=== PATIENT | female | born 1940 | race Caucasian/White ===

== ENCOUNTER 2016-10-02 17:32 | Inpatient (IN) | payer MEDICARE, OTHER ==
--- NOTE | ~2016-10-02 | CN ---
Consultation Report [facility] [address] [place]. [address] NAME: TATI AKHTAR : 40 STATUS : ADM David PAT#: [id number] AGE: 76 ADM/REG DATE : 10/02/16 MR#: [id number] REPORT SERV DATE: 10/04/16 DICTATED BY: CONRADO PINTO DATE: 10/03/16 REPORT STATUS : Draft TRANSCRIBED BY: MODL DATE: 10/03/16 DATE OF CONSULTATION: 10/03/2016 CHIEF COMPLAINT: Shortness of breath in a patient with bilateral recurrent pleural effusions. HISTORY OF PRESENT ILLNESS: Mrs. Tati Akhtar is a pleasant 76-year-old white female with a past medical history significant for bilateral pleural effusions, atrial fibrillation and hypertension, who presents to [facility] Emergency Room with complaints of worsening shortness of breath. It should be noted that Mrs. Akhtar has been hospitalized recently with similar complaints. Mrs. Akhtar is established in our pulmonary clinic and sees Dr. Ware. She is not on any pulmonary medications. She does wear chronic oxygen at hour of sleep at 3 L. The patient states that she quit smoking over 30 years ago. Prior to this time, she states that she smoked approximately one pack a day for a period about five years. She denies symptomatology consistent with obstructive sleep apnea. She has difficulty quantifying her exercise tolerance as she is somewhat limited secondary to a stroke. Mrs. Akhtar has undergone at least four separate thoracenteses, three on the left and once on the right. These appeared to be transudative in nature, although the initial June tap barely falls out of criteria in regard to protein. Followup studies for culture and malignancy have all been negative. The patient has responded to diuretic therapy in the past with some improvement in her effusions and dyspnea. She was most recently discharged on 20 of Demadex, which she states that she has been compliant in taking. More recently, she has experienced some worsening shortness of breath, which culminated in her presentation to [facility] Emergency Room. Upon arrival, she was found to have a BNP of only 123. Chest x ray revealed effusion. This prompted a CT of the chest, which reveals bilateral pleural effusions, left greater than right, as well as compressive atelectasis. For the aforementioned reasons, she has been referred to the Pulmonary Service for further assessment. Currently, Mrs. Akhtar is on 2 L of supplemental oxygen. She does confirm some degree of shortness of breath. This is worse on exertion and relieved by the rest. She does have what she describes as a "wet cough." This is producing nonpurulent sputum. She denies past pneumonias. She denies a formal diagnosis of asthma, chronic bronchitis, or emphysema. The patient does have known atrial fibrillation and some mild coronary artery disease by report. She has been told that "she has a hole in her heart." She currently denies any murmurs, angina, or palpitations. She denies any worsening lower extremity edema. In regard to constitutional symptoms, she currently denies fever, chills, nausea, vomiting, chest pain, abdominal pain, or edema. PAST MEDICAL HISTORY: Consultation Report [address] [address] NAME: TATI AKHTAR : 40 STATUS : ADM David PAT#: [id number] AGE: 76 ADM/REG DATE : 10/02/16 MR#: [id number] REPORT SERV DATE: 10/04/16 DICTATED BY: CONRADO PINTO DATE: 10/03/16 REPORT STATUS : Draft TRANSCRIBED BY: LYNNE DATE: 10/03/16 1. Bilateral pleural effusions. 2. Bilateral atelectasis. 3. Congestive heart failure. 4. Atrial fibrillation. 5. Coronary artery disease. 6. Bipolar disorder. 7. Gastroesophageal reflux disease. 8. Hypertension. 9. Dyslipidemia. 10.Hypothyroidism. 11.Previous CVA. 12.Type 2 diabetes. PAST SURGICAL HISTORY: 1. Lumpectomy. 2. Cataract surgery. 3. Hysterectomy with bilateral salpingo-oophorectomy. FAMILY HISTORY: The patient denies a family history of lung disease. SOCIAL HISTORY: The patient currently resides in a residential facility. She has children. She denies any previous exposures to dust, silica, or asbestos. TOBACCO/ALCOHOL: As previously mentioned, the patient quit smoking over 30 years ago. Prior to this time, she smoked approximately one pack a day for about five years. MEDICATIONS: 1. DuoNeb. 2. Carvedilol 6.25 mg. 3. Digoxin 1.25 mg. 4. Depakote 250 mg. 5. Colace 100 mg. 6. Aricept 10 mg. 7. Levothyroxine 200 mcg. 8. Lisinopril 2.5 mg. 9. Metformin 500 mg. 10.Potassium chloride 20 mEq. 11.Pravastatin 40 mg. 12.Risperdal 0.25 mg. 13.Zoloft 25 mg. 14.Demadex 100 mg tablet 50 mg daily. 15.Trazodone 100 mg. ALLERGIES: THE PATIENT HAS KNOWN ALLERGY TO PENICILLIN. Consultation Report [address] [place]. [address] NAME: TATI AKHTAR : 40 STATUS : ADM David PAT#: [id number] AGE: 76 ADM/REG DATE : 10/02/16 MR#: [id number] REPORT SERV DATE: 10/04/16 DICTATED BY: CONRADO PINTO DATE: 10/03/16 REPORT STATUS : Draft TRANSCRIBED BY: LYNNE DATE: 10/03/16 REVIEW OF SYSTEMS: Complete review of systems was performed with the pertinent positives and negatives contained within the body of the HPI. PHYSICAL EXAMINATION: VITAL SIGNS: Blood pressure is 189/85, heart rate 73, T-max is 97.7, respiratory rate is 16, SpO2 is 94% on 2 L. GENERAL: The patient is a pleasant, well-nourished/well-developed female, who is not currently exhibiting any signs of acute distress. SKIN: Skin with appropriate texture and turgor. No rashes, lesions, or ulcers. Nails are clear without cyanosis or clubbing. HEENT: Head: Skull is normocephalic/atraumatic. Facies symmetric. No masses or lesions. Eyes: Sclera anicteric, conjunctiva pink without exudates. Extra ocular movements intact. Pupils are equal, round, reactive to light. Ears: Auricles and tragus without pain to palpation. Hearing is grossly intact. Nose: Bilateral nasal patency. Sinuses without tenderness upon palpation. Throat: Dentition. Lips, oral mucosa, tongue, palate, and pharynx pink and moist without lesions. Uvula rises equally on phonation. Tongue midline without deviation. NECK: Neck supple. Trachea midline. No cervical lymphadenopathy appreciated. THORAX/LUNGS: Thorax is symmetric with equal chest rise. Diminished breath sounds in the bases as well as a few scattered rhonchi. CARDIOVASCULAR: Regular rate and rhythm. No murmurs, rubs, or gallops. Anterior chest without thrills, heaves, or lifts. ABDOMEN: Soft. Non-distended, non-tender. Active bowel sounds in all four quadrants. No hepatosplenomegaly noted. PERIPHERAL VASCULAR: No edema. No varicosities, stasis changes, open sores, ulcerations, or phlebitis. 2+ pulses in radial and dorsalis pedis. MUSCULOSKELETAL: Full AROM and PROM in all joints. No evidence of erythema, deformity, or crepitus. NEUROLOGIC: CN II - XII grossly intact. Good muscle bulk and tone bilaterally. Strength 5/5 throughout. PSYCHIATRIC: Patient demonstrates good judgment and insight. Pt is A&O x 3. ACCESSORY DATA: Reveals a white blood cell count of 10,900. Creatinine is 1.04. TSH is 2.49. Urine antigens for strep and Legionella are negative. Urine is benign. Chest x-ray reveals pleural effusions, left greater than right. CT of the chest reveals probable bibasilar and multisegmental atelectasis, left greater than right, with underlying pleural effusions, left greater than right. Less likely underlying pneumonia. IMPRESSION: 1. Recurrent bilateral pleural effusions. 2. History of atrial fibrillation. 3. Heart failure with preserved ejection fraction. 4. Mild tricuspid regurgitation. 5. History of cerebrovascular accident. Consultation Report [address] [address] NAME: TATI AKHTAR : 40 STATUS : ADM David PAT#: [id number] AGE: 76 ADM/REG DATE : 10/02/16 MR#: [id number] REPORT SERV DATE: 10/04/16 DICTATED BY: CONRADO PINTO DATE: 10/03/16 REPORT STATUS : Draft TRANSCRIBED BY: MODPriti DATE: 10/03/16 PLAN: At this time, we will provide the patient with diuretics with close attention to her blood pressure and renal function. We did discuss the possibility of repeat thoracentesis versus video-assisted thorascopic surgery and even PleurX catheter placement. At this time, we will attempt to manage her with medications. Moving forward, we may need to pursue more invasive means of managing her effusions. The aforementioned impression and plan has been discussed with Dr. Elizalde, who will follow further recommendations. We thank you for this consult and look forward to participating in the care of Mrs. Tati Akhtar. GBS/MODL Conrado Pinto PA-C / [id number] CC: Alli Cabrera Jr, MD Osborn, Michael
--- NOTE | ~2016-10-02 | OP ---
Record Of Operation [facility] [address] [place]. [address] NAME: JOSELO AKHTAR : 40 STATUS : ADM IN PAT#: [id number] AGE: 76 ADM/REG DATE : 10/03/16 MR#: [id number] REPORT SERV DATE: 10/11/16 DICTATED BY: SKYE CAMPOS DATE: 10/10/16 REPORT STATUS : Draft TRANSCRIBED BY: MODL DATE: 10/10/16 DATE OF PROCEDURE: PROCEDURE: Right PleurX catheter placement. REASON FOR PROCEDURE: Right pleural effusion, which is recurrent. PREOPERATIVE DIAGNOSIS: Transudative right pleural effusion, recurrent. POSTOPERATIVE DIAGNOSIS: Transudative right pleural effusion, recurrent. PROCEDURE NOTE: Mrs. Akhtar is a 76-year-old female with the above-named diagnosis, who was brought down to the bronchoscopy suite, she was placed in proper position, using ultrasound, we were able to locate the correct pocket on the right side. We then sterilized and draped that site after marking. We then used a PleurX catheter insertion kit, we were able to anesthetize the area with lidocaine. The patient was given moderate sedation by Anesthesia. We were able to insert a finer needle into the right pleural space and have return of pleural fluid. We then placed the guidewire and tunneled a PleurX catheter in standard fashion into that site. We had removal of around 75 mL of pleural fluid. There was some air that did come into the site during the procedure and the majority that was taken out with the suction catheter. We then had no significant bleeding or subcutaneous air, we then sutured the PleurX catheter and placed a chest tube, lays suture to hold that in place and dressed the site in proper fashion. The patient had minimal coughing. OUTCOME: Successful right PleurX catheter placement. HFQ/LYNNE Skye Campos MD / [id number] CC: MD BHASKAR Santos MICHAEL
--- NOTE | ~2016-10-02 | OP ---
Record Of Operation [facility] [address] [place]. [address] NAME: JOSELO JACOBS : 40 STATUS : ADM IN PAT#: [id number] AGE: 76 ADM/REG DATE : 10/03/16 MR#: [id number] REPORT SERV DATE: 10/05/16 DICTATED BY: CONRADO PINTO DATE: 10/05/16 REPORT STATUS : Draft TRANSCRIBED BY: MODL DATE: 10/05/16 DATE OF PROCEDURE: 10/05/2016 TIME: 1520 hours. PROCEDURE: Ultrasound-guided left-sided thoracentesis. INDICATION: Moderate to large left-sided pleural effusion. PROCEDURE PRODUCTION ESTIMATOR: Armando Pinto PA-C. CONSENT: Consent was obtained from the patient prior to the procedure. Diagnostic and therapeutic indications for thoracentesis were discussed as well as risks including life- threatening bleeding, pneumothorax, and even the possible necessity of chest tube placement. Benefits and alternatives were explained at length. Prior to the procedure, imaging studies were reviewed with Dr. Elizalde who agreed with the indication to proceed with thoracentesis. Dr. Elizalde was present during the procedure. PROCEDURE SUMMARY: A time out was performed verifying correct patient, procedure, site, and positioning. The patient's left chest was prepped and draped in a sterile manner using chlorhexidine scrub after the appropriate level was percussed and confirmed by ultrasound. U/S images were obtained and placed within the chart. 2% lidocaine with epinephrine was then used to anesthetize the region. A finder needle was then used to aspirate straw- colored fluid. A 10-blade scalpel was then used to make a small incision. The thoracentesis catheter was then threaded into the pleural space without difficulty. The patient had 1 L of straw-colored fluid removed. Of note, the right side of the chest was ultrasounded as well with a significant pocket of fluid. That being said, the patient began to develop a more pronounced cough and it was decided at that time to not proceed with right sided thoracentesis. No immediate complications were noted during the procedure. A post- procedure chest x-ray is pending at the time of this dictation. The fluid will be sent for several studies. ESTIMATED BLOOD LOSS: Minimal. GBS/MODL Conrado Pinto PA-C / [id number] CC: Alli Cabrera Jr, MD Osborn, Michael
--- NOTE | ~2016-10-02 | DS ---
Discharge Summary [facility] [address] [place]. [address] NAME: JOSELO JACOBS : 40 STATUS : DIS IN PAT#: [id number] AGE: 76 ADM/REG DATE : 10/03/16 MR#: [id number] REPORT SERV DATE: 10/13/16 DICTATED BY: SHERMAN MCKEON DATE: 10/12/16 REPORT STATUS : Draft TRANSCRIBED BY: MODL DATE: 10/12/16 ADMISSION DATE: 10/03/2016 DISCHARGE DATE: 10/12/2016 The patient is a 76-year-old female with a history of CVA with right hemiparesis, atrial fibrillation, hypertension, bipolar disorder, and diabetes type 2, who presented to the hospital with a complaint of worsening shortness of breath and intractable cough. For further details please refer to H and P dictated by Dr. Allen on 10/04/2016. HOSPITAL COURSE: Please refer to interim discharge summary dictated by Dr. Rodriguez on 10/09/2016. This dictation is an addition to interim discharge summary. I assumed care of the patient on 10/09/2016. At that time plan was for the patient to have discussion with Cardiothoracic Surgery for possible VATS procedure; however, upon re-examination, re- evaluation by Pulmonary, that plan was discontinued and it was opted that a PleurX catheter be placed. PleurX catheter was placed on 10/10/2016, the patient tolerated the procedure well. Status post procedure the patient has remained hemodynamically stable. From a Pulmonary standpoint, no further procedures will be performed at this time, clearing the patient for discharge. The patient is currently on drain schedule of Saturday, Saturday, Saturday; however, no fluid will be drained this Saturday. Given completion of management and given clearance by Pulmonology, the patient will be discharged back to alf facility at [place]. Plan has been discussed with the patient, who voices understanding and is agreeable with this plan. DISCHARGE DIAGNOSES: 1. Bilateral pleural effusion. 2. Status post PleurX catheter placement. 3. Atrial fibrillation. 4. Hypertension. 5. Diabetes type 2. 6. Cough. DISCHARGE MEDICATIONS: 1. Coreg 6.25 mg p.o. b.i.d. 2. Digoxin 0.125 mg p.o. daily. 3. Depakote 250 mg p.o. twice a day. 4. Colace 100 mg p.o. twice a day. 5. Aricept 10 mg p.o. at bedtime. 6. Levothyroxine 200 mcg p.o. at breakfast. 7. Lisinopril 2.5 mg p.o. daily. 8. Potassium chloride 20 mEq p.o. twice a day. 9. Pravastatin 40 mg p.o. at bedtime. 10.Risperdal 0.25 mg p.o. at bedtime. 11.Florastor 250 mg p.o. twice a day. 12.Zoloft 75 mg p.o. daily. 13.Torsemide 50 mg p.o. daily. 14.Trazodone 100 mg p.o. at bedtime. Discharge Summary [address] [address] NAME: JOSELO JACOBS : 40 STATUS : DIS IN PAT#: [id number] AGE: 76 ADM/REG DATE : 10/03/16 MR#: [id number] REPORT SERV DATE: 10/13/16 DICTATED BY: SHERMAN MCKEON DATE: 10/12/16 REPORT STATUS : Draft TRANSCRIBED BY: LYNNE DATE: 10/12/16 15.Metformin 500 mg p.o. twice a day. 16.DuoNebs one inhalation three times daily. DISPOSITION: The patient will be discharged to alf facility at [place]. ACTIVITY: As tolerated. DIET: Diabetic diet. Greater than 30 minutes were spent coordinating discharge, providing counseling, medication reconciliation, and dictation of note. CHILO/LYNNE Sherman Mckeon MD / [id number] CC: MD Alysa Santos M.D.
--- NOTE | ~2016-10-02 | IDS ---
Interim Discharge Summary [facility] [address] [place]. [address] NAME: JOSELO JACOBS : 40 STATUS : ADM IN PAT#: [id number] AGE: 76 ADM/REG DATE : 10/03/16 MR#: [id number] REPORT SERV DATE: 10/09/16 DICTATED BY: EMIL RAE DATE: 10/08/16 REPORT STATUS : Draft TRANSCRIBED BY: MODL DATE: 10/08/16 ADMISSION DATE: 10/03/2016 DISCHARGE DATE: PROCEDURES DONE: 1. 10/08/2016, chest x-ray: Continued bilateral pleural effusion and bibasilar atelectasis, similar to prior exam .. 2. 10/06/2016, chest x-ray: Increasing atelectasis, possibly increasing pleural effusion bilaterally. 3. 10/05/2016, chest x-ray: Pulmonary vascular congestion with interstitial edema and bilateral pleural effusions are improving. There are some residual infiltrates in the lung bases. Right lung base is worst than the left. 4. 10/03/2016, chest x-ray: Continued moderate left and small right pleural effusion with compressive atelectasis. 5. 10/02/2016, chest x-ray: Bibasilar atelectasis/consolidation of moderate bilateral pleural fluid, left greater than right, similar to prior exam. 6. 10/02/2016, CT chest with contrast, probable bibasilar multisegmental atelectasis, left greater than right with underlying pleural effusions, left greater than right, less likely underlying pneumonia. Multisegmental atelectasis pattern and pleural effusions new at the left lung base since 08/22/2016 CT exam. Although, slightly improved atelectasis with stable pleural effusions at the right lung base since prior CT. Mild cardiomegaly, no acute CHF pattern. No thoracic adenopathy. Stable pattern of asymmetric soft tissue attenuation volume, parenchyma deep to the right nipple in the right breast compared to the left breast, uncertain clinical significance. Mild diffuse bilateral renal cortical thickening. CONSULT: [facility] for Pulmonary. REASON FOR ADMISSION: Shortness of breath with cough. HISTORY OF HOSPITAL STAY: A 76-year-old white female with past medical history of CVA with right hemiparesis, atrial fibrillation, hypertension, bipolar, diabetes type 2, hypothyroid presenting with shortness of breath and intractable cough. The patient has had multiple thoracocentesis regarding her recurrent pleural effusion. The patient has shortness of breath and intractable cough with her recurrent bilateral pleural effusion. Pulmonary was consulted. The patient underwent thoracocentesis on 10/05/2016 with one liter of fluid removed. Unfortunately, Pulmonary has had difficulty in figuring out why the patient has been having recurrent pleural effusion. Since the patient had approximately 6 thoracocentesis total since June, Pulmonary is reluctant to do further thoracocentesis on the patient. Therefore, a CT surgery will be consulted for a VATS procedure on the patient, plus or minus pleurodesis. DIAGNOSES ON DISCHARGE: 1. Shortness of breath with cough secondary to recurrent bilateral pleural effusions. At this time, the patient has had six thoracocentesis. Pulmonary is recommending CT surgery for VATS with plus or minus pleurodesis. The patient is willing to listen to Interim Discharge Summary [address] [address] NAME: JOSELO JACOBS : 40 STATUS : [facility]#: [id number] AGE: 76 ADM/REG DATE : 10/03/16 MR#: [id number] REPORT SERV DATE: 10/09/16 DICTATED BY: EMIL RAE. DATE: 10/08/16 REPORT STATUS : Draft TRANSCRIBED BY: LYNNE DATE: 10/08/16 CT surgery recommendations. The patient is unfortunately apprehensive about the procedure. Nonetheless, the patient is willing to try and listen and see if she can tolerate the procedure. 2. Atrial fibrillation, currently asymptomatic. 3. Hypertension, continue lisinopril. 4. Bipolar, continue donepezil and sertraline with risperidone. 5. Diabetes type 2, continue insulin sliding scale. FBBarbara/MODL Emil Rae MD / [id number] CC: Isidro Holland II, MD
--- NOTE | ~2016-10-02 | OP ---
Record Of Operation [facility] [address] [place]. [address] NAME: JOSELO JACOBS : 40 STATUS : ADM IN PAT#: [id number] AGE: 76 ADM/REG DATE : 10/03/16 MR#: [id number] REPORT SERV DATE: 10/11/16 DICTATED BY: SKYE CAMPOS DATE: 10/10/16 REPORT STATUS : Draft TRANSCRIBED BY: MODL DATE: 10/10/16 DATE OF PROCEDURE: 10/10/2016 PROCEDURE: Left PleurX catheter placement. PREOPERATIVE DIAGNOSIS: Recurrent transudative effusions bilaterally. POSTOPERATIVE DIAGNOSIS: Recurrent transudative effusions bilaterally. PROCEDURE NOTE: The patient is a 76-year-old female with the above-named diagnosis. She is getting a bilateral PleurX catheter placement for bilateral pleural effusions which are recurrent. After the right side was conducted, we then repositioned the patient and prepped and draped the left thoracic cavity. We then used ultrasound guidance to find a pocket, this was marked, and the patient was sterilized. In standard fashion, we inserted the left PleurX catheter. We were able to anesthetize the site with lidocaine and epinephrine. We were able to get the removal of pleural fluid and placed a guidewire in the pleural space. We then tracked in standard fashion a PleurX catheter on the left side. We were able to place the chest tube, and after having removal of around 150 mL of pleural fluid and no emphysema or bleeding was noted, we were able to suture that left PleurX catheter in standard fashion. We used a lace chest tube suture. We then dressed that side and procedure was over. OUTCOME: Successful left-sided PleurX catheter placement. HFQ/MODL Skye Campos MD / [id number] CC: MD Pascual Santos
--- NOTE | ~2016-10-02 | HP ---
History And Physical [facility] [address] [place]. [address] NAME: JOSELO AKHTAR : 40 STATUS : ADM David PAT#: [id number] AGE: 76 ADM/REG DATE : 10/02/16 MR#: [id number] REPORT SERV DATE: 10/04/16 DICTATED BY: LEONARD FERGUSON DATE: 10/03/16 REPORT STATUS : Draft TRANSCRIBED BY: MODL DATE: 10/03/16 DATE OF ADMISSION: 10/02/2016 CHIEF COMPLAINT: Shortness of breath and intractable cough. HISTORY OF PRESENT ILLNESS: This is a 76-year-old female with a history of CVA in the past, with right hemiparesis, history of atrial fibrillation, hypertension, bipolar disorder, diabetes mellitus, and hypothyroidism who presents to the emergency room at [facility] with the above-mentioned complaint. History is obtained from the patient and reviewing data available on the Intrinsic-ID System. According to available data, she had been having a week of progressively worsening shortness of breath and intractable cough. She also had a temperature of 102 degrees, but was afebrile upon presentation here. She is a resident at the [facility] [place], and finally, the facility felt that she needs to go to the emergency room to be evaluated. In the emergency room, initial workup including a chest x-ray showed bilateral pleural effusions, left more than right. She is a patient of Dr. Ware, has had multiple thoracenteses done, both from the right and left pleural fluids, which have been historically transudates. The etiology of her pleural effusions was unclear. Hospitalist Service is asked to admit her for further evaluation and treatment. At the time of my evaluation, she denied any chest pain or palpitations. She had some orthopnea. She had a cough, which was essentially nonproductive, not associated with any fevers, chills, weight loss, or night sweats. She has had no recent falls or loss of consciousness. No history of nausea, vomiting, diarrhea, hematemesis, hematochezia, or hematuria. No other history of recent travel or exposures other than those mentioned above. PAST MEDICAL HISTORY: Her past medical history is significant for history of recurrent bilateral pleural effusions of unclear etiology, history of atrial fibrillation, hypertension, history of CVA with right hemiparesis, history of bipolar disorder, diabetes mellitus type 2, hypothyroidism, and coronary artery disease. Her last echocardiogram done in June 2016 showed an ejection fraction of 56% with an RVSP of 19 mmHg. SOCIAL HISTORY: She has never smoked. Does not drink or use recreational drugs. FAMILY HISTORY: Noncontributory. MEDICATIONS: Her medications at home were reviewed by me in the chart today and reordered by me. REVIEW OF SYSTEMS: As in history of present illness. All other systems were reviewed in detail and are quite unremarkable. PHYSICAL EXAMINATION: History And Physical [address] [address] NAME: JOSELO AKHTAR : 40 STATUS : ADM David PAT#: [id number] AGE: 76 ADM/REG DATE : 10/02/16 MR#: [id number] REPORT SERV DATE: 10/04/16 DICTATED BY: LEONARD FERGUSON DATE: 10/03/16 REPORT STATUS : Draft TRANSCRIBED BY: LYNNE DATE: 10/03/16 GENERAL: This is a pleasant 76-year-old, not in any acute distress. She is alert, awake, oriented to time, place, and person. HEENT: Her head is atraumatic and normocephalic. Her pupils are equal, reacting to light and accommodating. External ocular muscles are intact. Membranes are moist and pink. Sclerae are nonicteric. NECK: Supple with no jugular venous distention, lymphadenopathy, or thyromegaly. LUNGS: Auscultation of her lungs revealed decreased air entry bilaterally, but with bilateral dullness to percussion in the bases. There were no rales. Trachea appeared to be in the midline. HEART: Auscultation of her heart revealed normal rate and rhythm with no murmurs, rubs, or gallops appreciated. ABDOMEN: Soft and nontender. Bowel sounds are present. EXTREMITIES: Showed no cyanosis, clubbing, or edema. NEUROLOGIC: Grossly intact. She has residual right hemiparesis from her prior stroke. No new findings. She has some dysphagia as well, which is not new. Higher functions appeared intact. VITAL SIGNS: Her vital signs today showed a temperature of 97.7, pulse 133/40, respirations upon arrival were 19, blood pressure was 133/40, and oxygen saturations were 93% on 4 liters of oxygen via nasal cannula. LABORATORY DATA: Reviewed on the Intrinsic-ID System showed a sodium of 139, potassium of 4.0, chloride 98, CO2 of 30, BUN was 17 with a creatinine of 1.29 and blood glucose was 172. Liver parameters were within normal limits. BNP was 123.1. CBC showed a white blood cell count of 10,900, otherwise, normal hemoglobin, hematocrit, and platelet count. Her prothrombin time was 13 and INR was 1.0. Urinalysis was grossly unremarkable. Films of the chest x-ray were reviewed by me on the PACs today and interpreted by me. There is normal bony architecture with no cardiomegaly. There are bilateral pleural effusions, left greater than right. IMPRESSION: 1. Shortness of breath. 2. Bilateral pleural effusions, which are recurrent. 3. Hypomagnesemia. 4. History of atrial fibrillation. 5. Hypertension. 6. History of prior cerebrovascular accident with right hemiparesis and dysphagia. 7. Diabetes mellitus type 2. 8. Hypothyroidism. 9. Bipolar disorder. 10.Coronary artery disease. PLAN: We will admit Ms. Akhtar to the Hospitalist Service with telemetry for a 24-hour observation. We will keep her n.p.o. after midnight for possible thoracentesis in the morning. We will go ahead and consult Pulmonary Service to see her as well. We will replace her magnesium, check chemistry and electrolytes in the morning, and replacing per protocol again. We will place her on NovoLog insulin per sliding scale for blood sugar control and hold her metformin. We will also check her TSH and continue replacement History And Physical [address] [address] NAME: JOSELO AKHTAR : 40 STATUS : ADM David PAT#: [id number] AGE: 76 ADM/REG DATE : 10/02/16 MR#: [id number] REPORT SERV DATE: 10/04/16 DICTATED BY: LEONARD FERGUSON DATE: 10/03/16 REPORT STATUS : Draft TRANSCRIBED BY: MODPriti DATE: 10/03/[address] her on SCDs for DVT prophylaxis while she is here tonight, hold her aspirin as well. This is in preparation for her procedure. Please see today's orders for all the details. I have discussed the above plans with the patient. Her questions were answered and she is agreeable to the above recommendations. Hospitalist Service will be following her during her stay here. /LYNNE Leonard Ferguson M.D. / [id number] CC: Alli Cabrera Jr, MD OSBORN, MICHAEL
[~2016-10-02 17:32] MED LIST: ARICEPT10 PO; ASA5GR PO; ATROVENTUD INH; COREG12 PO; COREG6 PO; DEMA20 PO; DEPAKOT250 PO; DEPASPRINK PO; DSS PO; DUET DH1 PO; DUONEB INH; ENABLEX7.5 PO; FLORASTOR250 MG PO; GLUCOPHAGE1000 MG PO; GLUCPH PO; HYDROCHLOROT12.5 MG PO; K500 PO; KLOR-CON 1010 MEQ PO; KLOR-CON M2020 MEQ PO; LACTINEX OR; LAN125 PO; LEVOTHYROXIN175 MCG PO; LOTE20 PO; MACROBID PO; MAX25 PO; NITROSTAT0.4 MG SL; NORV5 PO; PRAVACHOL40 MG PO; PRIN2.5 PO; REM15 PO; RISP0.5 PO; RISPERDAL0.25 MG PO; SYNTHROID200 MCG PO; SYSTANE OPH; TRAZ100 PO; ZOCOR20 PO; ZOL100 PO; ZOL50 PO; ZOLOFT25 MG PO; [UNRECOGNIZED DRUG - OTHER] OPH; [UNRECOGNIZED DRUG - OTHER] OPH
[2016-10-02 18:30] LABS: BASOPHILS 0.1 %; BASOPHILS ABSOLUTE 0.01 10/3/uL (0.0-0.16); EOSINOPHILS 3.2 %; EOSINOPHILS ABSOLUTE 0.35 10/3/uL (0.0-0.53); ER CBC TAT 0 Hrs 07 Mins; HEMATOCRIT 37.7 % (36.0-48.0); HEMOGLOBIN 12.5 g/dL (12.0-16.0); IMMATURE GRANULOCYTES 0.3 %; IMMATURE GRANULOCYTES ABSOLUTE 0.03 10/3/uL (0.0-0.11); LYMPHOCYTES 26.6 %; LYMPHOCYTES ABSOLUTE 2.89 10/3/uL (0.67-4.30); MEAN CORPUS HGB CONC 33.2 g/dL (32.0-36.0); MEAN CORPUSCULAR VOLUME 87.5 fL (80-100); MEAN PLATELET VOLUME 9.8 fL (9.2-13.0); MONOCYTES 8.9 %; MONOCYTES ABSOLUTE 0.97 10/3/uL (0.21-1.20); NEUTROPHILS 60.9 %; PLATELET COUNT 210 10/3/uL (150-400); RBC DISTRIBUTION WIDTH 14.5 % (12.0-16.0); RED CELL COUNT 4.31 10/6/uL (4.0-5.6); WHITE BLOOD CELLS 10.9 10/3/uL (4.5-10.5)
[2016-10-02 18:31] LABS: MANUAL DIFF NO %
[2016-10-02 18:39] LABS: PARTIAL THROMBO TIME 33.4 SEC (22.5-37.2)
[2016-10-02 18:46] LABS: ASCORBIC ACID (UR NOT ORDER) NEG (NEG); BILIRUBIN, URINE NEGATIVE (NEG); ER URINALYSIS TAT 0 Hrs 08 Mins; KETONE, URINE NEGATIVE (NEG); LEUKOCYTE ESTERASE(NOT OR NEG (NEG); NITRITE (URINE) NEG (NEG); WBC (NOT ORDERED) (RFLEX) 1 (0-5)
[2016-10-02 18:47] LABS: CALCIUM, SERUM 8.7 MG/DL (8.5-10.4); CHEST PAIN PROFILE TAT 0 Hrs 24 Mins; CHLORIDE, SERUM 98 MMOL/L (96-112); CO2 (CARBON DIOXIDE) 30 MMOL/L (24-34); CREATININE 1.29 MG/DL (0.55-1.02); GFR AFRICAN AMERICAN 47 ML/MIN (>=60); GFR NON AFRICAN AMERICAN 40 ML/MIN (>=60); SODIUM, SERUM 139 MMOL/L (135-148); TROPONIN I <0.02 NG/ML (<0.05)
[2016-10-02 18:48] LABS: BUN (BLOOD UREA NITROGEN) 17 MG/DL (6-23); GLUCOSE, SERUM 172 MG/DL (60-99)
[2016-10-02] MEDS ORDERED: RISPERDAL0.25 MG PO (22:14)
[2016-10-02] MEDS ORDERED: ZOLOFT25 MG PO (22:14)
[2016-10-02] MEDS ORDERED: TRAZ100 PO (22:14)
[2016-10-02] MEDS ORDERED: ARICEPT10 PO (22:15)
[2016-10-02] MEDS ORDERED: ASAEC PO (22:15)
[2016-10-02] MEDS ORDERED: FLORASTOR250 MG PO (22:16)
[2016-10-02] MEDS ORDERED: SYSTANE OPH (22:16)
[2016-10-02] MEDS ORDERED: GLUCPH PO (22:16)
[2016-10-02] MEDS ORDERED: DEPAKOT250 PO (22:16)
[2016-10-02] MEDS ORDERED: SYNTHROID200 MCG PO (22:17)
[2016-10-02] MEDS ORDERED: PRIN2.5 PO (22:17)
[2016-10-02] MEDS ORDERED: DSS PO (22:17)
[2016-10-02] MEDS ORDERED: PRAVACHOL40 MG PO (22:17)
[2016-10-02] MEDS ORDERED: PRENAVITE PO (22:18)
[2016-10-02] MEDS ORDERED: COREG6 PO (22:18)
[2016-10-02] MEDS ORDERED: LAN125 PO (22:19)
[2016-10-02] MEDS ORDERED: DEMA100 PO (22:19)
[2016-10-02] MEDS ORDERED: KLOR-CON M2020 MEQ PO (22:19)
[2016-10-02] MEDS ORDERED: DUONEB INH ×2 (22:20)
[2016-10-03 05:32] LABS: INTERNATIONAL NORMAL RATI 0.9 UNITS (-); PROTIME (NOT ORD) 12.5 SEC (12.0-14.5)
[2016-10-03 05:56] LABS: BUN (BLOOD UREA NITROGEN) 16 MG/DL (6-23); CALCIUM, SERUM 9.2 MG/DL (8.5-10.4); CHLORIDE, SERUM 98 MMOL/L (96-112); CO2 (CARBON DIOXIDE) 32 MMOL/L (24-34); CREATININE 1.04 MG/DL (0.55-1.02); GFR AFRICAN AMERICAN 60 ML/MIN (>=60); GFR NON AFRICAN AMERICAN 52 ML/MIN (>=60); GLUCOSE, SERUM 141 MG/DL (60-99); PHOSPHORUS, SERUM 4.2 MG/DL (2.5-4.5); POTASSIUM, SERUM 3.6 MMOL/L (3.5-5.3); SODIUM, SERUM 141 MMOL/L (135-148)
[2016-10-04 05:15] LABS: BASOPHILS 0.1 %; BASOPHILS ABSOLUTE 0.01 10/3/uL (0.0-0.16); EOSINOPHILS 3.2 %; EOSINOPHILS ABSOLUTE 0.28 10/3/uL (0.0-0.53); HEMATOCRIT 37.3 % (36.0-48.0); HEMOGLOBIN 12.3 g/dL (12.0-16.0); IMMATURE GRANULOCYTES 0.5 %; IMMATURE GRANULOCYTES ABSOLUTE 0.04 10/3/uL (0.0-0.11); LYMPHOCYTES 29.8 %; MEAN CORPUSCULAR HEMOGLOB 28.7 pg (26.0-34.0); MEAN CORPUSCULAR VOLUME 87.1 fL (80-100); MEAN PLATELET VOLUME 9.6 fL (9.2-13.0); MONOCYTES 9.6 %; MONOCYTES ABSOLUTE 0.84 10/3/uL (0.21-1.20); NEUTROPHILS 56.8 %; NEUTROPHILS ABSOLUTE 4.96 10/3/uL (2.02-8.40); PLATELET COUNT 209 10/3/uL (150-400); RBC DISTRIBUTION WIDTH 14.3 % (12.0-16.0); RED CELL COUNT 4.28 10/6/uL (4.0-5.6); WHITE BLOOD CELLS 8.7 10/3/uL (4.5-10.5)
[2016-10-04 05:17] LABS: MANUAL DIFF NO %
[2016-10-04 05:30] LABS: BUN (BLOOD UREA NITROGEN) 17 MG/DL (6-23); CALCIUM, SERUM 8.6 MG/DL (8.5-10.4); CHLORIDE, SERUM 99 MMOL/L (96-112); CO2 (CARBON DIOXIDE) 30 MMOL/L (24-34); CREATININE 1.09 MG/DL (0.55-1.02); GFR AFRICAN AMERICAN 57 ML/MIN (>=60); GFR NON AFRICAN AMERICAN 49 ML/MIN (>=60); GLUCOSE, SERUM 122 MG/DL (60-99); PHOSPHORUS, SERUM 5.1 MG/DL (2.5-4.5); POTASSIUM, SERUM 3.7 MMOL/L (3.5-5.3); SODIUM, SERUM 142 MMOL/L (135-148)
[2016-10-05 04:52] LABS: BUN (BLOOD UREA NITROGEN) 18 MG/DL (6-23); CALCIUM, SERUM 8.3 MG/DL (8.5-10.4); CHLORIDE, SERUM 102 MMOL/L (96-112); CO2 (CARBON DIOXIDE) 32 MMOL/L (24-34); CREATININE 1.12 MG/DL (0.55-1.02); GFR AFRICAN AMERICAN 55 ML/MIN (>=60); GFR NON AFRICAN AMERICAN 48 ML/MIN (>=60); GLUCOSE, SERUM 112 MG/DL (60-99); POTASSIUM, SERUM 3.9 MMOL/L (3.5-5.3); SODIUM, SERUM 143 MMOL/L (135-148)
[2016-10-05 16:29] LABS: TOTAL PROTEIN 6.9 G/DL (6.0-8.5)
[2016-10-05 16:36] LABS: GLUCOSE BODY FL (NOT ORD) 172 MG/DL; LDH BODY FLUID (NOT ORD) 96 U/L; PROTEIN BODY FLUID 4.4 G/DL
[2016-10-05 17:08] LABS: BF TOTAL CELL CT (NOT ORD 310 /MM3; BODY FLUID RBC (NOT ORD) < 10 /MM3
[2016-10-05 17:19] LABS: BD FL SOURCE (NOT ORD) PLUERAL; BF BASO (NOT OF) 0 %; BODY FLUID EOS (NOT ORD) 0 %
[2016-10-05 17:29] LABS: BODY FLUID SEG (NOT ORD) 5 %
[2016-10-05 17:30] LABS: BD FL LYMPH (NOT ORD) 12 %; BF LARGE MONONUCLEAR 83 %
[2016-10-06 06:06] LABS: BASOPHILS 0.1 %; BASOPHILS ABSOLUTE 0.01 10/3/uL (0.0-0.16); EOSINOPHILS 2.9 %; EOSINOPHILS ABSOLUTE 0.27 10/3/uL (0.0-0.53); HEMATOCRIT 40.2 % (36.0-48.0); HEMOGLOBIN 13.2 g/dL (12.0-16.0); IMMATURE GRANULOCYTES 0.4 %; IMMATURE GRANULOCYTES ABSOLUTE 0.04 10/3/uL (0.0-0.11); LYMPHOCYTES 31.8 %; LYMPHOCYTES ABSOLUTE 2.99 10/3/uL (0.67-4.30); MEAN CORPUS HGB CONC 32.8 g/dL (32.0-36.0); MEAN CORPUSCULAR HEMOGLOB 28.8 pg (26.0-34.0); MEAN CORPUSCULAR VOLUME 87.6 fL (80-100); MEAN PLATELET VOLUME 9.1 fL (9.2-13.0); MONOCYTES 8.3 %; MONOCYTES ABSOLUTE 0.78 10/3/uL (0.21-1.20); NEUTROPHILS 56.5 %; PLATELET COUNT 211 10/3/uL (150-400); RBC DISTRIBUTION WIDTH 14.2 % (12.0-16.0); RED CELL COUNT 4.59 10/6/uL (4.0-5.6); WHITE BLOOD CELLS 9.4 10/3/uL (4.5-10.5)
[2016-10-06 06:07] LABS: MANUAL DIFF NO %
[2016-10-06 06:20] LABS: CALCIUM, SERUM 8.5 MG/DL (8.5-10.4); CHLORIDE, SERUM 102 MMOL/L (96-112); CO2 (CARBON DIOXIDE) 32 MMOL/L (24-34); CREATININE 1.45 MG/DL (0.55-1.02); GFR AFRICAN AMERICAN 40 ML/MIN (>=60); GFR NON AFRICAN AMERICAN 35 ML/MIN (>=60); PHOSPHORUS, SERUM 4.9 MG/DL (2.5-4.5); POTASSIUM, SERUM 4.4 MMOL/L (3.5-5.3); SODIUM, SERUM 143 MMOL/L (135-148)
[2016-10-06 06:27] LABS: BUN (BLOOD UREA NITROGEN) 23 MG/DL (6-23); GLUCOSE, SERUM 158 MG/DL (60-99)
[2016-10-07 05:08] LABS: BASOPHILS 0.1 %; BASOPHILS ABSOLUTE 0.01 10/3/uL (0.0-0.16); EOSINOPHILS 3.1 %; EOSINOPHILS ABSOLUTE 0.29 10/3/uL (0.0-0.53); HEMATOCRIT 36.3 % (36.0-48.0); IMMATURE GRANULOCYTES 0.5 %; IMMATURE GRANULOCYTES ABSOLUTE 0.05 10/3/uL (0.0-0.11); LYMPHOCYTES 29.2 %; LYMPHOCYTES ABSOLUTE 2.75 10/3/uL (0.67-4.30); MANUAL DIFF NO %; MEAN CORPUS HGB CONC 33.1 g/dL (32.0-36.0); MEAN CORPUSCULAR HEMOGLOB 28.5 pg (26.0-34.0); MEAN CORPUSCULAR VOLUME 86.2 fL (80-100); MEAN PLATELET VOLUME 9.3 fL (9.2-13.0); MONOCYTES 9.5 %; MONOCYTES ABSOLUTE 0.89 10/3/uL (0.21-1.20); NEUTROPHILS 57.6 %; NEUTROPHILS ABSOLUTE 5.42 10/3/uL (2.02-8.40); PLATELET COUNT 195 10/3/uL (150-400); RBC DISTRIBUTION WIDTH 14.2 % (12.0-16.0); RED CELL COUNT 4.21 10/6/uL (4.0-5.6); WHITE BLOOD CELLS 9.4 10/3/uL (4.5-10.5)
[2016-10-07 05:30] LABS: BUN (BLOOD UREA NITROGEN) 25 MG/DL (6-23); CHLORIDE, SERUM 101 MMOL/L (96-112); CO2 (CARBON DIOXIDE) 29 MMOL/L (24-34); CREATININE 1.22 MG/DL (0.55-1.02); GFR AFRICAN AMERICAN 50 ML/MIN (>=60); GFR NON AFRICAN AMERICAN 43 ML/MIN (>=60); GLUCOSE, SERUM 145 MG/DL (60-99); SODIUM, SERUM 141 MMOL/L (135-148)
[2016-10-08 05:48] LABS: BUN (BLOOD UREA NITROGEN) 25 MG/DL (6-23); CALCIUM, SERUM 8.7 MG/DL (8.5-10.4); CHLORIDE, SERUM 101 MMOL/L (96-112); CO2 (CARBON DIOXIDE) 30 MMOL/L (24-34); CREATININE 1.14 MG/DL (0.55-1.02); GFR AFRICAN AMERICAN 54 ML/MIN (>=60); GFR NON AFRICAN AMERICAN 47 ML/MIN (>=60); GLUCOSE, SERUM 133 MG/DL (60-99); POTASSIUM, SERUM 4.3 MMOL/L (3.5-5.3); SODIUM, SERUM 139 MMOL/L (135-148)
[2016-10-09 06:56] LABS: BASOPHILS 0.3 %; BASOPHILS ABSOLUTE 0.02 10/3/uL (0.0-0.16); EOSINOPHILS 2.3 %; EOSINOPHILS ABSOLUTE 0.18 10/3/uL (0.0-0.53); HEMATOCRIT 35.1 % (36.0-48.0); HEMOGLOBIN 11.6 g/dL (12.0-16.0); IMMATURE GRANULOCYTES 0.6 %; IMMATURE GRANULOCYTES ABSOLUTE 0.05 10/3/uL (0.0-0.11); LYMPHOCYTES 33.5 %; LYMPHOCYTES ABSOLUTE 2.63 10/3/uL (0.67-4.30); MEAN CORPUSCULAR HEMOGLOB 28.8 pg (26.0-34.0); MEAN CORPUSCULAR VOLUME 87.1 fL (80-100); MEAN PLATELET VOLUME 8.8 fL (9.2-13.0); MONOCYTES ABSOLUTE 0.71 10/3/uL (0.21-1.20); NEUTROPHILS 54.3 %; NEUTROPHILS ABSOLUTE 4.26 10/3/uL (2.02-8.40); PLATELET COUNT 206 10/3/uL (150-400); RED CELL COUNT 4.03 10/6/uL (4.0-5.6); WHITE BLOOD CELLS 7.9 10/3/uL (4.5-10.5)
[2016-10-09 06:57] LABS: MANUAL DIFF NO %
[2016-10-09 07:12] LABS: BUN (BLOOD UREA NITROGEN) 28 MG/DL (6-23); CHLORIDE, SERUM 98 MMOL/L (96-112); CO2 (CARBON DIOXIDE) 32 MMOL/L (24-34); CREATININE 1.42 MG/DL (0.55-1.02); GFR AFRICAN AMERICAN 41 ML/MIN (>=60); GFR NON AFRICAN AMERICAN 36 ML/MIN (>=60); GLUCOSE, SERUM 136 MG/DL (60-99); PHOSPHORUS, SERUM 4.5 MG/DL (2.5-4.5); SODIUM, SERUM 138 MMOL/L (135-148)
[2016-10-10 05:18] LABS: BASOPHILS 0.2 %; BASOPHILS ABSOLUTE 0.02 10/3/uL (0.0-0.16); EOSINOPHILS 2.8 %; EOSINOPHILS ABSOLUTE 0.24 10/3/uL (0.0-0.53); HEMATOCRIT 36.1 % (36.0-48.0); IMMATURE GRANULOCYTES 0.7 %; IMMATURE GRANULOCYTES ABSOLUTE 0.06 10/3/uL (0.0-0.11); LYMPHOCYTES 37.3 %; LYMPHOCYTES ABSOLUTE 3.22 10/3/uL (0.67-4.30); MEAN CORPUS HGB CONC 33.2 g/dL (32.0-36.0); MEAN CORPUSCULAR HEMOGLOB 28.9 pg (26.0-34.0); MEAN PLATELET VOLUME 8.9 fL (9.2-13.0); MONOCYTES 8.1 %; NEUTROPHILS 50.9 %; PLATELET COUNT 202 10/3/uL (150-400); RBC DISTRIBUTION WIDTH 13.9 % (12.0-16.0); RED CELL COUNT 4.15 10/6/uL (4.0-5.6); WHITE BLOOD CELLS 8.6 10/3/uL (4.5-10.5)
[2016-10-10 05:20] LABS: MANUAL DIFF NO %
[2016-10-10 05:43] LABS: A/G RATIO 0.7 (0.7-1.9); ALBUMIN 2.6 G/DL (3.5-5.0); ALKALINE PHOSPHATASE 55 U/L (45-117); BUN (BLOOD UREA NITROGEN) 28 MG/DL (6-23); CHLORIDE, SERUM 101 MMOL/L (96-112); CO2 (CARBON DIOXIDE) 29 MMOL/L (24-34); CREATININE 1.23 MG/DL (0.55-1.02); GFR AFRICAN AMERICAN 49 ML/MIN (>=60); GFR NON AFRICAN AMERICAN 43 ML/MIN (>=60); GLUCOSE, SERUM 133 MG/DL (60-99); PHOSPHORUS, SERUM 4.8 MG/DL (2.5-4.5); POTASSIUM, SERUM 4.3 MMOL/L (3.5-5.3); SGOT(AST) 11 U/L (5-40); SGPT(ALT) 8 U/L (5-65); SODIUM, SERUM 139 MMOL/L (135-148); TOTAL BILIRUBIN 0.2 MG/DL (0-1.2); TOTAL PROTEIN 6.6 G/DL (6.0-8.5)
[2016-10-11 05:25] LABS: BASOPHILS 0.3 %; BASOPHILS ABSOLUTE 0.03 10/3/uL (0.0-0.16); EOSINOPHILS 2.3 %; EOSINOPHILS ABSOLUTE 0.25 10/3/uL (0.0-0.53); HEMATOCRIT 37.4 % (36.0-48.0); HEMOGLOBIN 12.3 g/dL (12.0-16.0); IMMATURE GRANULOCYTES 0.4 %; IMMATURE GRANULOCYTES ABSOLUTE 0.04 10/3/uL (0.0-0.11); LYMPHOCYTES 30.1 %; LYMPHOCYTES ABSOLUTE 3.32 10/3/uL (0.67-4.30); MEAN CORPUS HGB CONC 32.9 g/dL (32.0-36.0); MEAN CORPUSCULAR HEMOGLOB 28.5 pg (26.0-34.0); MEAN CORPUSCULAR VOLUME 86.8 fL (80-100); MEAN PLATELET VOLUME 8.8 fL (9.2-13.0); MONOCYTES ABSOLUTE 0.77 10/3/uL (0.21-1.20); NEUTROPHILS 59.9 %; NEUTROPHILS ABSOLUTE 6.63 10/3/uL (2.02-8.40); PLATELET COUNT 222 10/3/uL (150-400); RBC DISTRIBUTION WIDTH 13.9 % (12.0-16.0); RED CELL COUNT 4.31 10/6/uL (4.0-5.6)
[2016-10-11 05:33] LABS: MANUAL DIFF NO %
[2016-10-11 05:34] LABS: A/G RATIO 0.7 (0.7-1.9); ALBUMIN 2.5 G/DL (3.5-5.0); ALKALINE PHOSPHATASE 54 U/L (45-117); BUN (BLOOD UREA NITROGEN) 29 MG/DL (6-23); CALCIUM, SERUM 8.9 MG/DL (8.5-10.4); CHLORIDE, SERUM 102 MMOL/L (96-112); CO2 (CARBON DIOXIDE) 29 MMOL/L (24-34); CREATININE 1.08 MG/DL (0.55-1.02); GFR AFRICAN AMERICAN 58 ML/MIN (>=60); GFR NON AFRICAN AMERICAN 50 ML/MIN (>=60); GLOBULIN 3.8 G/DL (2.5-4.1); GLUCOSE, SERUM 118 MG/DL (60-99); POTASSIUM, SERUM 4.2 MMOL/L (3.5-5.3); SGOT(AST) 10 U/L (5-40); SGPT(ALT) 10 U/L (5-65); SODIUM, SERUM 141 MMOL/L (135-148); TOTAL BILIRUBIN 0.2 MG/DL (0-1.2); TOTAL PROTEIN 6.3 G/DL (6.0-8.5)
[2016-10-12 07:04] LABS: BASOPHILS 0.2 %; BASOPHILS ABSOLUTE 0.02 10/3/uL (0.0-0.16); EOSINOPHILS 2.1 %; EOSINOPHILS ABSOLUTE 0.24 10/3/uL (0.0-0.53); HEMATOCRIT 40.4 % (36.0-48.0); HEMOGLOBIN 13.5 g/dL (12.0-16.0); IMMATURE GRANULOCYTES 0.5 %; IMMATURE GRANULOCYTES ABSOLUTE 0.06 10/3/uL (0.0-0.11); LYMPHOCYTES 27.7 %; LYMPHOCYTES ABSOLUTE 3.15 10/3/uL (0.67-4.30); MEAN CORPUS HGB CONC 33.4 g/dL (32.0-36.0); MEAN CORPUSCULAR HEMOGLOB 28.9 pg (26.0-34.0); MEAN CORPUSCULAR VOLUME 86.5 fL (80-100); MEAN PLATELET VOLUME 8.6 fL (9.2-13.0); MONOCYTES 7.9 %; NEUTROPHILS 61.6 %; NEUTROPHILS ABSOLUTE 7.02 10/3/uL (2.02-8.40); PLATELET COUNT 200 10/3/uL (150-400); RED CELL COUNT 4.67 10/6/uL (4.0-5.6); WHITE BLOOD CELLS 11.4 10/3/uL (4.5-10.5)
[2016-10-12 07:10] LABS: MANUAL DIFF NO %
[2016-10-12 07:18] LABS: A/G RATIO 0.6 (0.7-1.9); ALBUMIN 2.5 G/DL (3.5-5.0); ALKALINE PHOSPHATASE 61 U/L (45-117); BUN (BLOOD UREA NITROGEN) 23 MG/DL (6-23); CALCIUM, SERUM 8.6 MG/DL (8.5-10.4); CHLORIDE, SERUM 102 MMOL/L (96-112); CO2 (CARBON DIOXIDE) 32 MMOL/L (24-34); CREATININE 1.13 MG/DL (0.55-1.02); GFR AFRICAN AMERICAN 55 ML/MIN (>=60); GFR NON AFRICAN AMERICAN 47 ML/MIN (>=60); GLOBULIN 4.3 G/DL (2.5-4.1); GLUCOSE, SERUM 140 MG/DL (60-99); POTASSIUM, SERUM 4.1 MMOL/L (3.5-5.3); SGOT(AST) 6 U/L (5-40); SGPT(ALT) 8 U/L (5-65); SODIUM, SERUM 139 MMOL/L (135-148); TOTAL BILIRUBIN 0.2 MG/DL (0-1.2); TOTAL PROTEIN 6.8 G/DL (6.0-8.5)
[2016-11-22] MEDS ORDERED: PCET PO (14:10)
[2016-11-22] MEDS ORDERED: SENTAB PO (14:11)
[2016-11-22] MEDS ORDERED: MIRALAX POWDER1 PKT PO (14:11)
[2016-11-22] MEDS ORDERED: ATV.5 PO (14:11)
== END 2016-10-12 11:50 | DRG 187 ==
LOC: ER 17:32 → CDU1 22:24 → 7NO 10-06 08:34
PROVIDERS: Emergency Medicine; Hospitalist; Internal Medicine; Physician Assistant Medical
PROC: 0W9B3ZX Drainage of Left Pleural Cavity, Percutaneous Approach, Diagnostic (ICD-10-PCS; principal; 2016-10-05)
PROC: 0W9930Z Drainage of Right Pleural Cavity with Drainage Device, Percutaneous Approach (ICD-10-PCS; 2016-10-10)
PROC: 0W9B30Z Drainage of Left Pleural Cavity with Drainage Device, Percutaneous Approach (ICD-10-PCS; 2016-10-10)
DX: J90 Pleural effusion, not elsewhere classified (principal); I69.351 Hemiplegia and hemiparesis following cerebral infarction affecting right dominant side; I48.91 Unspecified atrial fibrillation; E11.9 Type 2 diabetes mellitus without complications; I10 Essential (primary) hypertension; F31.9 Bipolar disorder, unspecified; I07.1 Rheumatic tricuspid insufficiency
CPT/HCPCS: 36600; 71010; 71020; 71260; 80048; 80053; 81001; 82150; 82945; 82962; 83615; 83690; 83735; 83880; 84100; 84155; 84157; 84443; 84484; 85025; 85610; 85730; 87015; 87040; 87070; 87102; 87116; 87205; 87449; 88112; 88305; 89051; 93005; 94640; 99291; A9270-GY; C1729; C8924; C8929; G0463; J2250; J3010; Q9957; Q9967

== ENCOUNTER 2016-11-23 11:08 | Day surgery (SDC) | payer MEDICARE, OTHER ==
--- NOTE | ~2016-11-23 | OP ---
Record Of Operation [facility] [address] [place]. [address] NAME: JOSELO JACOBS : 40 STATUS : REG [facility] [place] PAT#: [id number] AGE: 76 ADM/REG DATE : 11/23/16 MR#: [id number] REPORT SERV DATE: 11/23/16 DICTATED BY: SKYE CAMPOS DATE: 11/23/16 REPORT STATUS : Draft TRANSCRIBED BY: MODL DATE: 11/23/16 DATE OF PROCEDURE: 11/23/2016 PROCEDURE NOTE PROCEDURE: Bilateral PleurX catheter removals. INDICATION FOR PROCEDURE: The patient has essentially no significant pleural fluid drainage, chest x-ray clear, symptoms have resolved. PREOPERATIVE DIAGNOSIS: Bilateral pleural effusions. POSTOPERATIVE DIAGNOSIS: Bilateral pleural effusions. PROCEDURE NOTE: The patient was brought to the endoscopy suite, she was placed in the right side down position, left chest tube was attempted to be drained, no drainage was noted. We used sterile technique and sterilized the catheter along with the skin. We placed lidocaine with epinephrine to anesthetize the area, no sedation was given. We were able to dissect out the cuff and take out the chest tube with no difficulty. We placed an occlusive dressing and Tegaderm over the site. We then flipped the patient around and attempted the same procedure on the right side, there was around 5 mL of drainage out of the right PleurX catheter, but otherwise no further drainage. We then took out the right PleurX catheter in the same standard fashion of the left side and placed occlusive dressing. We again used local lidocaine and the patient tolerated the procedure well. The patient and daughter were in the room at that time, and no sedation was given in this patient with early-onset dementia per note. OUTCOME: Successful bilateral removal of PleurX catheter and postop chest x-ray showed no significant pneumothorax. HFQ/LYNNE Skye Campos MD / [id number] CC: MD Alysa Vera M.D.
[~2016-11-23 11:08] MED LIST changes: +ASAEC PO; +ATV.5 PO; +DEMA100 PO; +MIRALAX POWDER1 PKT PO; +PCET PO; +PRENAVITE PO; +SENTAB PO
[2016-11-23 12:41] LABS: BASOPHILS 0.1 %; BASOPHILS ABSOLUTE 0.01 10/3/uL (0.0-0.16); EOSINOPHILS 1.7 %; EOSINOPHILS ABSOLUTE 0.15 10/3/uL (0.0-0.53); HEMATOCRIT 40.6 % (36.0-48.0); HEMOGLOBIN 13.2 g/dL (12.0-16.0); IMMATURE GRANULOCYTES 0.1 %; IMMATURE GRANULOCYTES ABSOLUTE 0.01 10/3/uL (0.0-0.11); LYMPHOCYTES 25.9 %; LYMPHOCYTES ABSOLUTE 2.28 10/3/uL (0.67-4.30); MEAN CORPUS HGB CONC 32.5 g/dL (32.0-36.0); MEAN CORPUSCULAR HEMOGLOB 28.7 pg (26.0-34.0); MEAN CORPUSCULAR VOLUME 88.3 fL (80-100); MEAN PLATELET VOLUME 9.2 fL (9.2-13.0); MONOCYTES 8.2 %; MONOCYTES ABSOLUTE 0.72 10/3/uL (0.21-1.20); NEUTROPHILS ABSOLUTE 5.65 10/3/uL (2.02-8.40); PLATELET COUNT 203 10/3/uL (150-400); RBC DISTRIBUTION WIDTH 14.3 % (12.0-16.0); WHITE BLOOD CELLS 8.8 10/3/uL (4.5-10.5)
[2016-11-23 12:44] LABS: MANUAL DIFF NO %
[2016-11-23 12:48] LABS: INTERNATIONAL NORMAL RATI 1.1 UNITS (-); PROTIME (NOT ORD) 13.6 SEC (12.0-14.5)
[2016-11-23 12:49] LABS: PARTIAL THROMBO TIME 31.2 SEC (22.5-37.2)
== END 2016-11-23 23:59 | disposition home or self-care (01) ==
LOC: DMU 11:08
PROVIDERS: Internal Medicine Critical Care Medicine
PROC: 0BPQ30Z Removal of Drainage Device from Pleura, Percutaneous Approach (ICD-10-PCS; principal; 2016-11-23 13:00)
DX: Z46.82 Encounter for fitting and adjustment of non-vascular catheter (principal); J98.11 Atelectasis; I48.91 Unspecified atrial fibrillation; I25.10 Atherosclerotic heart disease of native coronary artery without angina pectoris; F41.9 Anxiety disorder, unspecified; F31.9 Bipolar disorder, unspecified; I11.0 Hypertensive heart disease with heart failure; I50.9 Heart failure, unspecified; K21.9 Gastro-esophageal reflux disease without esophagitis; E78.00 Pure hypercholesterolemia, unspecified; E03.9 Hypothyroidism, unspecified; E11.9 Type 2 diabetes mellitus without complications; F03.90 Unspecified dementia, unspecified severity, without behavioral disturbance, psychotic disturbance, mood disturbance, and anxiety; G47.33 Obstructive sleep apnea (adult) (pediatric); Z79.82 Long term (current) use of aspirin; Z79.899 Other long term (current) drug therapy; Z86.73 Personal history of transient ischemic attack (TIA), and cerebral infarction without residual deficits; Z98.41 Cataract extraction status, right eye; Z98.42 Cataract extraction status, left eye; Z90.710 Acquired absence of both cervix and uterus; Z82.61 Family history of arthritis; Z82.3 Family history of stroke; Z83.3 Family history of diabetes mellitus; Z82.49 Family history of ischemic heart disease and other diseases of the circulatory system; Z87.891 Personal history of nicotine dependence
CPT/HCPCS: 71010; 82962; 85025; 85610; 85730